=== PATIENT | female | born 1945 | race Caucasian/White ===

== ENCOUNTER 2022-06-23 14:41 | Emergency (ER) | payer MEDICARE, OTHER ==
[2022-06-23 15:13] LABS: #Basophils 0.1 10x3/uL (0.0-0.2); #Eosinphils 0.3 10x3/uL (0.0-0.5); #Monocytes 0.4 10x3/uL (0.0-1.1); #Neutrophils 4.4 10x3/uL (1.5-8.4); %Basophils 1.1 % (0.0-2.0); %Eosinophils 3.9 % (0.0-6.0); %Lymphocytes 22.1 % (18.0-47.0); %Monocytes 6.3 % (0.0-10.0); %Neutrophils 66.3 % (40.0-75.0); Hemoglobin 13.1 g/dL (12.0-15.5); Mean Corpuscular HGB CONC 33.9 g/dL (32.0-36.0); Mean Corpuscular Hemoglobin 32.2 pg (27.0-33.0); Mean Corpuscular Volume 95.1 fl (81.6-98.3); Mean Platelet Volume 11.3 fl (7.4-10.4); Platelet Count 257 10x3/uL (150-450); RBC Distribution Width 13.8 % (11.5-14.5); Red Blood Cell (RBC) Count 4.07 10x6/uL (3.90-5.03); White Blood Cell (WBC) Count 6.6 10x3/uL (3.5-10.5)
[2022-06-23 15:45] LABS: ALT (SGPT) 17 U/L (8-55); AST (SGOT) 22 U/L (5-34); Albumin 4.3 g/dL (3.4-4.8); Alkaline Phosphatase 83 U/L (40-110); Anion Gap 14 mmol/L (10-20); BUN (Urea Nitrogen) 23 mg/dL (9.8-20.1); Bilirubin, Total 0.3 mg/dL (0.2-1.2); Calc. Creatinine Clearance 0 mL/min (70-130); Calcium 9.8 mg/dL (7.8-10.44); Carbon Dioxide 26 mmol/L (23-31); Chloride 106 mmol/L (98-107); Estimated GFR 64; Globulin 2.4 g/dL (2.4-3.5); Glucose 179 mg/dL (83-110); Potassium 4.2 mmol/L (3.5-5.1); Protein, Total 6.7 g/dL (5.8-8.1); Sodium 142 mmol/L (136-145)
== END 2022-06-23 19:51 | disposition short-term general hospital (02) ==
LOC: CSHERS 14:41
DX: I62.00 Nontraumatic subdural hemorrhage, unspecified (principal); I10 Essential (primary) hypertension
CPT/HCPCS: 36416; 70450; 71045; 80053; 84484; 85025; 93005

== ENCOUNTER 2022-07-07 13:07 | Outpatient (CLI) | payer MEDICARE, OTHER | END 2022-07-07 13:08 | disposition home or self-care (01) | LOC: CSHCT 13:07 | PROVIDERS: ATTEND Neurological Surgery | DX: I62.02 Nontraumatic subacute subdural hemorrhage (principal); I62.03 Nontraumatic chronic subdural hemorrhage | CPT/HCPCS: 70450 ==